=== PATIENT | female | born 1960 | race Caucasian/White ===

== ENCOUNTER 2019-12-29 05:22 | Emergency (ER) | payer OTHER, BC ==
[2019-12-29] MEDS ORDERED: SODIUM CHLORIDE IV ONE (06:02)
[2019-12-29] MEDS ORDERED: ACETAMINOPHEN 1000 MG/100 ML VIAL (NON FORMULARY) IVPB ONE (06:03)
[2019-12-29 06:10] VITALS: BMI 37.3
[2019-12-29] MEDS ORDERED: ACETAMINOPHEN INJECTION 100 ML IVPB ONE ×2 (06:10→06:20)
[2019-12-29 06:41] LABS: VENOUS PC02 47.3 mmHg (38-52); VENOUS PH 7.37 (7.31-7.41)
[2019-12-29 06:42] LABS: VENOUS PO2 < 49 mmHg (28-48)
[2019-12-29 07:01] LABS: BASO % 0.7 % (0-2.0); EOS % 1.3 % (0-4.5); HEMATOCRIT 36.8 % (32.4-45.2); HEMOGLOBIN 12.4 GM/dL (10.7-15.3); LYMPH % 19.8 % (8-40); MCH 28.6 pg (25.7-33.7); MCHC 33.6 g/dl (32.0-36.0); MEAN PLT VOLUME 9.8 fl (7.5-11.1); MONO % 13.4 % (3.8-10.2); NEUT % 64.8 % (42.8-82.8); PLATELET COUNT 211 K/MM3 (134-434); RBC 4.33 M/mm3 (3.60-5.2); RDW 13.7 % (11.6-15.6); WHITE BLOOD COUNT 5.5 K/mm3 (4.0-10.0)
[2019-12-29 07:20] LABS: ALBUMIN 3.5 g/dl (3.4-5.0); ALK PHOS 104 U/L (45-117); ANION GAP 6 MMOL/L (8-16); BILIRUBIN,TOTAL 0.5 mg/dL (0.2-1); BLOOD UREA NITROGEN 14.1 mg/dL (7-18); CALCIUM 8.8 mg/dL (8.5-10.1); CHLORIDE 104 mmol/L (98-107); CO2 29 mmol/L (21-32); CREATININE 0.7 mg/dL (0.55-1.3); GLUCOSE,RANDOM 112 mg/dL (74-106); POTASSIUM 4.3 mmol/L (3.5-5.1); SGOT/AST 19 U/L (15-37); SGPT/ALT 27 U/L (13-61); SODIUM 138 mmol/L (136-145); TOT PROT 7.4 g/dl (6.4-8.2)
[2019-12-29] MEDS ORDERED: KETOROLAC TROMETHAMINE 30 MG/1 ML VIAL IVPUSH ONE (07:28)
[2019-12-29] MEDS ORDERED: ALBUTEROL SO4 2.5/IPRATROPIUM 0.5 INH SOL 3 ML VIAL.NEB. NEB ONE ×2 (07:32→09:02)
[2019-12-29] MEDS ORDERED: methylPREDNISolone NA SUCC 125 MG/2 ML VIAL IVPUSH ONE (07:44)
--- NOTE | 2019-12-29 07:44 | PDOC ---
History of Present Illness - General Chief Complaint: Shortness of Breath Stated Complaint: COUGH Time Seen by Provider: 12/29/19 07:17 History Source: Patient Exam Limitations: No Limitations - History of Present Illness Initial Comments: 12/29/19 07:42 59 female with a past presenting with four days of cough, fever, chills, headache, and myalgias. Patient states that she was sick approximately 1 to 2 weeks ago. She admits that her got sick after she felt better. Patient now says that she got sick again with similar symptoms. She denies nausea, vomiting, sore throat. She admits to the diffuse headache that is worse and every time she coughs. She denies abdominal pain or dysuria. Shes not taking any medications to feel better. Past History - Past Medical History Allergies/Adverse Reactions: Allergies Allergy/AdvReac Type Severity Reaction Status Date / Time No Known Allergies Allergy Verified 12/29/19 05:54 Home Medications: Ambulatory Orders Budesonide/Formeterol Fumarate [SYMBICORT 160/4.5mcg -] 1 spr IH DAILY 12/31/17 Albuterol Sulfate Inhaler - [Ventolin HFA Inhaler -] 1 - 2 puff IH Q6H PRN 12/29/19 Cephalexin Monohydrate [Keflex -] 500 mg PO BID #10 capsule 12/29/19 Asthma: Yes COPD: No - Immunization History Immunization Up to Date: Yes - Psycho Social/Smoking Cessation Hx Smoking History: Never smoked Have you smoked in the past 12 months: No Hx Alcohol Use: No Drug/Substance Use Hx: No Review of Systems - Review of Systems Able to Perform ROS?: Yes Comments:: 12/29/19 07:43 GENERAL/CONSTITUTIONAL: + for fever and chills. No weakness. HEAD, EYES, EARS, NOSE AND THROAT: No change in vision. No ear pain or discharge. No sore throat. CARDIOVASCULAR: No chest pain, palpitations, or lightheadedness. RESPIRATORY: + for cough. No wheezing, shortness of breath, or hemoptysis. GASTROINTESTINAL: No abdominal pain, nausea, vomiting, diarrhea, or constipation. GENITOURINARY: No dysuria, frequency, hematuria, or change in urination. MUSCULOSKELETAL: + for myalgias. No joint or muscle swelling or pain. No neck or back pain. SKIN: No rash or lesions. NEUROLOGIC: + for headache. No numbness, tingling, focal weakness, loss of consciousness, or change in strength/sensation. Is the patient limited [place] proficient: No *Physical Exam - Vital Signs Last Vital Signs Temp Pulse Resp BP Pulse Ox 101.1 F H 118 H 20 162/88 100 12/29/19 05:55 12/29/19 05:55 12/29/19 05:55 12/29/19 05:55 12/29/19 06:29 - Physical Exam 12/29/19 07:43 GENERAL: Well developed, well nourished. Awake and alert. No acute distress. HEENT: Normocephalic, atraumatic. Hearing grossly normal. Moist mucous membranes. PERRLA, EOMI. No conjunctival pallor. Sclera are non-icteric. NECK: Supple. Full ROM. No JVD. CARDIOVASCULAR: Regular rate and rhythm. No murmurs, rubs, or gallops. PULMONARY: No evidence of respiratory distress. Decreased lung sounds bilaterally. Mild expiratory wheezing. ABDOMINAL: Soft. Non-tender. Non-distended. No rebound or guarding. GENITOURINARY: No CVA tenderness bilaterally. MUSCULOSKELETAL: Normal range of motion at all joints. No bony deformities or tenderness. EXTREMITIES: No cyanosis. No clubbing. No edema. No calf tenderness or swelling. SKIN: Warm and dry. Normal capillary refill. No rashes. No jaundice. NEUROLOGICAL: Alert, awake, appropriate. Cranial nerves 2-12 grossly intact. Normal speech. Gait is normal without ataxia. PSYCHIATRIC: Cooperative. Good eye contact. Appropriate mood and affect. ED Treatment Course - LABORATORY CBC & Chemistry Diagram: 12/29/19 06:15 12/29/19 06:15 - ADDITIONAL ORDERS Additional order review: Laboratory Results 12/29/19 12/29/19 06:15 06:15 VBG pH 7.37 POC VBG pCO2 47.3 POC VBG pO2 < 49 H VBG HCO3 26.8 VBG O2 Sat (Rizwan) 73.5 VBG Base Excess 1.6 Sodium 138 Potassium 4.3 Chloride 104 Carbon Dioxide 29 Anion Gap 6 L BUN 14.1 Creatinine 0.7 Est GFR (CKD-EPI)AfAm 109.91 Est GFR (CKD-EPI)NonAf 94.84 Random Glucose 112 H Calcium 8.8 Total Bilirubin 0.5 AST 19 ALT 27 Alkaline Phosphatase 104 Total Protein 7.4 Albumin 3.5 12/29/19 06:15 RBC 4.33 MCV 85.0 MCHC 33.6 RDW 13.7 MPV 9.8 Neutrophils % 64.8 Lymphocytes % 19.8 Monocytes % 13.4 H Eosinophils % 1.3 Basophils % 0.7 - Medications Given in the ED: ED Medications Discontinued Medications Generic Name Dose Route Start Last Admin Trade Name Charity PRN Reason Stop Dose Admin Acetaminophen 1,000 mg 12/29/19 06:03 12/29/19 06:33 Ofirmev Injection - IVPB 12/29/19 06:04 1,000 mg ONCE ONE Administration Sodium Chloride 2,776 mls @ 1,388 mls/hr 12/29/19 06:02 12/29/19 06:33 Normal Saline - 30 ml/kg infuse over 2 hr (2776 ml) 12/29/19 08:01 Not Given IV ONCE ONE Medical Decision Making - Medical Decision Making 12/29/19 07:45 59F with a PMH of HTN and asthma who presents to the ER with 4 days of flu-like symptoms. Due to incoming vitals, the patient had a septic order set worked up. Pt receiving fluids and tylenol. Toradol and steroids ordered for symptomatic relief. Ddx includes influenza, viral URI, PNA, asthma exacerbation. 12/29/19 07:51 UA shows UTI. Will give dose of keflex. Influenza swab negative. Pt satting in mid 90's on RA. 12/29/19 09:03 Pt has persistent cough but has normalized vitals. She states she feels slightly better. Will d/c with PCP f/u. Discharge - Discharge Information Problems reviewed: Yes Clinical Impression/Diagnosis: Viral URI with cough Condition: Good Disposition: HOME - Admission No - Additional Discharge Information Prescriptions: Cephalexin Monohydrate [Keflex -] 500 mg PO BID #10 capsule - Follow up/Referral Referrals: Andrew Abad MD [Primary Care Provider] - - Patient Discharge Instructions Patient Printed Discharge Instructions: Common Cold, Influenza Additional Instructions: Your ER visit is not complete until your follow up with your primary care physician. Please follow up with your primary care physician in 1-2 days. Please return to the ER if you have any signs or symptoms of chest pain, shortness of breath, uncontrollable fever, chills, nausea, vomiting, numbness, tingling, or weakness in any part of your body, changes in vision, or slurred speech. Please return to the ER if symptoms persist, worsen, or new symptoms arise. Mary visita a la norman de emergencias no est completa hasta mary seguimiento con mary mdico de atencin primaria. Nydia un seguimiento con mary mdico de atencin primaria en 1-2 johnson. Regrese a la norman de emergencias si tiene signos o sntomas de dolor en el pecho, falta de aliento, fiebre incontrolable, escalofros, nuseas, vmitos, entumecimiento, hormigueo o debilidad en alguna parte de mary cuerpo, cambios en la visin o dificultad para hablar. Regrese a la norman de emergencias si los sntomas persisten, empeoran o surgen nuevos sntomas. Print Language: TURKMEN - Post Discharge Activity
[2019-12-29 07:49] LABS: HYALINE CASTS 7 /lpf (0-8); URINE APPEARANCE CLEAR; URINE BACTERIA 206.5 /hpf (NEGATIVE); URINE BILIRUBIN NEGATIVE (NEGATIVE); URINE COLOR YELLOW; URINE GLUCOSE (UA) NEGATIVE (NEGATIVE); URINE KETONE NEGATIVE (NEGATIVE); URINE LEUK ESTERASE 1+ (NEGATIVE); URINE NITRITE NEGATIVE (NEGATIVE); URINE PROTEIN NEGATIVE (NEGATIVE); URINE RBC 1 /hpf (0-4); URINE UROBILINOGEN 0.2 mg/dL (0.2-1.0); URINE WBC 11 /hpf (0-5)
--- NOTE | 2019-12-29 07:49 | PDOC ---
Attending Attestation - Resident Resident Name: Jerome Lowe - ED Attending Attestation I have performed the following: I have examined & evaluated the patient, The case was reviewed & discussed with the resident, I agree w/resident's findings & plan, Exceptions are as noted - HPI HPI: 12/29/19 07:44 59y F history of hypertension, asthma presenting with cough for the past 4 days. Patient states she had some URI symptoms several weeks ago but it resolved but then recurred 4 days ago she endorses cough productive of intermittently yellow or clear sputum, denies any hemoptysis of greenish sputum. Patient also endorses subjective fever, mild shortness of breath consistent with her asthma. She has been using her albuterol with minimal improvement. Patient denies any leg swelling, calf pain, hemoptysis, recent travel. social: denies smokin, recreational drug use - Physicial Exam PE: 12/29/19 08:06 GENERAL: The patient is awake, alert, and fully oriented, Nontoxic - in no acute distress. HEAD: Normocephalic, atraumatic. EYES: extraocular movements intact, sclera anicteric, conjunctiva clear. ENT: Normal voice, Moist mucous membranes. NECK: Normal range of motion, supple LUNGS: Wheezing bilaterally, no acute respiratory distress, speaking complete sentences no accessory muscle use HEART: Tachycardic, normal S1 and S2 without murmur, rub or gallop. ABDOMEN: Soft, nontender, No guarding, no rebound. No CVA tenderness EXTREMITIES: Normal range of motion, no edema. no calf tenderness, neg homans NEUROLOGICAL: No facial assymetry, Normal speech, moving all 4 extremities s pontaneously and symmetrically PSYCH: Normal mood, normal affect. SKIN: Hot to the touch, Dry, normal turgor, - Medical Decision Making 12/29/19 08:07 Suspect asthma exacerbation secondary to cough/viral syndrome, consider possible pneumonia, influenza Upon arrival patient was noted febrile, sepsis order set was obtained as well as influenza and chest x-ray. We will give the patient albuterol and steroids as she is wheezing diffusely Her original saturation was 91%, on reassessment her current saturation is 95 to 96% on room air Will reassess 12/29/19 09:59 The patient's labs were reviewed they are unremarkable chest x-ray is negative for infiltrate or acute pulmonary disease. Patient's repeat saturation is normal the patient is no acute distress will discharge patient with albuterol and prednisone. Suspect her symptoms may be secondary to a viral illness. Return precautions were discussed
[2019-12-29] MEDS ORDERED: CEPHALEXIN MONOHYDRATE 500 MG CAPSULE (UD) PO ONE (07:51)
[2019-12-29] MEDS ORDERED: CEPHALEXIN MONOHYDRATE 500 MG CAPSULE (UD) ONE (09:02)
[2019-12-29] MEDS ORDERED: methylPREDNISolone NA SUCC 125 MG/2 ML VIAL ONE (09:02)
[2019-12-29] MEDS ORDERED: KETOROLAC TROMETHAMINE 15 MG/ML VIAL ONE (09:02)
[2019-12-29 09:13] VITALS: BP 110/61; PULSE 89; TEMP 97.8
--- NOTE | 2019-12-30 10:35 | EKG ---
Test Reason : Blood Pressure : / mmHG Vent. Rate : 116 BPM Atrial Rate : 116 BPM P-R Int : 144 ms QRS Dur : 078 ms QT Int : 308 ms P-R-T Axes : 059 038 030 degrees QTc Int : 428 ms SINUS TACHYCARDIA POSSIBLE LEFT ATRIAL ENLARGEMENT NONSPECIFIC ST ABNORMALITY ABNORMAL ECG WHEN COMPARED WITH ECG OF 23-AUG-2009 10:05, T WAVE INVERSION NO LONGER EVIDENT IN INFERIOR LEADS Confirmed by Benson Lepe MD ([id number]) on 12/30/2019 10:34:43 AM Referred By: Confirmed By:Benson Lepe MD
== END 2019-12-29 09:45 | disposition home or self-care (01) ==
LOC: JER 05:22
PROC: 3E0F7GC Introduction of Other Therapeutic Substance into Respiratory Tract, Via Natural or Artificial Opening (ICD-10-PCS; principal; 2019-12-29)
PROC: 3E0333Z Introduction of Anti-inflammatory into Peripheral Vein, Percutaneous Approach (ICD-10-PCS; 2019-12-29)
PROC: 3E0333Z Introduction of Anti-inflammatory into Peripheral Vein, Percutaneous Approach (ICD-10-PCS; 2019-12-29)
PROC: 3E033NZ Introduction of Analgesics, Hypnotics, Sedatives into Peripheral Vein, Percutaneous Approach (ICD-10-PCS; 2019-12-29)
DX: J06.9 Acute upper respiratory infection, unspecified (principal); N39.0 Urinary tract infection, site not specified
CPT/HCPCS: 36415; 71045-TC-FY; 80053; 81003; 82803; 83605; 84484; 85025; 87040; 87086; 87804; 93005; 93010; 99285-25; J0131